=== PATIENT | male | born 1970 | race Caucasian/White ===

== ENCOUNTER 2023-12-25 10:41 | Emergency (ER) | payer OTHER ==
[~2023-12-25] VITALS: Ht 180.3 cm; Wt 75.0 kg
[2023-12-25 10:44] VITALS: BP 111/82; PULSE 98; RESP 12; TEMP 98; O2SAT 100
[2023-12-25] MEDS ORDERED: BO1 TP (11:52)
[2023-12-26] MEDS ORDERED: FAMO-135 MT (01:17)
== END 2023-12-25 12:12 | disposition home or self-care (01) ==
LOC: ER 10:41
DX: S91.101A Unspecified open wound of right great toe without damage to nail, initial encounter (principal); X58.XXXA Exposure to other specified factors, initial encounter; Y93.89 Activity, other specified; Y92.89 Other specified places as the place of occurrence of the external cause; Y99.8 Other external cause status
CPT/HCPCS: 99283

== ENCOUNTER 2023-12-25 20:30 | Emergency (ER) | payer OTHER ==
[~2023-12-25] VITALS: Ht 175.3 cm; Wt 82.0 kg
[~2023-12-25 20:30] MED LIST: BO1 TP
[2023-12-25 20:59] VITALS: BP 126/90; PULSE 90; RESP 16; TEMP 98.4; O2SAT 100
[2023-12-25 23:38] LABS: BASOPHILS % 1.3 % (0.0-2.0); EOSINOPHILS % 1.1 % (0.0-5.0); HEMATOCRIT. 36.3 % (42.0-52.0); HEMOGLOBIN. 11.5 g/dL (14.0-18.0); LYMPHOCYTES % 39.5 % (20.0-50.0); MEAN CORPUSCULAR HEMOGLOBIN 29.4 pg (28.0-32.0); MEAN CORPUSCULAR HGB CONC 31.7 g/dL (31.0-37.0); MEAN CORPUSCULAR VOLUME 92.9 fL (80.0-94.0); MEAN PLATELET VOLUME 6.7 fl (7.4-10.4); MONOCYTES % 14.4 % (2.0-8.0); NEUTROPHILS % 43.7 % (40.0-76.0); PLATELET 257 x1000/uL (130-400); RED CELL DISTRIBUTION WIDTH 21.7 % (11.6-14.6); WHITE BLOOD COUNT 4.9 x1000/uL (4.5-11.0)
[2023-12-25 23:45] LABS: CHLORIDE 109 mEq/L (98-107); POTASSIUM 4.1 mEq/L (3.5-5.1); SODIUM 146 mEq/L (136-145)
[2023-12-25 23:46] LABS: CALCIUM 8.7 mg/dL (8.7-10.4); CARBON DIOXIDE 28 mEq/L (21-32)
[2023-12-25 23:51] LABS: CREATININE 0.8 mg/dL (0.6-1.3); GLUCOSE 91 mg/dL (70-105); UREA NITROGEN BLOOD 7 mg/dL (9-23)
[2023-12-25 23:52] LABS: LACTIC ACID 2.6 mmol/L (0.4-2.0)
[2023-12-25 23:53] LABS: ALANINE AMINOTRANSFERASE 26 IU/L (10-49); ALBUMIN 3.7 g/dL (3.2-4.8); ASPARTATE AMINOTRANSFERASE 43 IU/L (<34); BILIRUBIN TOTAL 0.2 mg/dL (0.1-1.0)
[2023-12-25 23:54] LABS: PROTEIN TOTAL 6.7 g/dL (6.0-8.3)
[2023-12-25 23:59] LABS: BILIRUBIN DIRECT < 0.1 mg/dL (<=3.0)
[2023-12-26] MEDS ORDERED: FAMO-135 MT (01:17)
== END 2023-12-26 04:39 | disposition home or self-care (01) ==
LOC: ER 20:30
DX: S90.411A Abrasion, right great toe, initial encounter (principal); R10.9 Unspecified abdominal pain; F41.9 Anxiety disorder, unspecified; Z88.6 Allergy status to analgesic agent; X58.XXXA Exposure to other specified factors, initial encounter; Y93.89 Activity, other specified; Y92.89 Other specified places as the place of occurrence of the external cause; Y99.8 Other external cause status
CPT/HCPCS: 36415; 80048; 80076; 83605; 85025; 99283